=== PATIENT | male | born 1985 | race Two or more races ===

== ENCOUNTER 2019-10-03 07:52 | Emergency (ER) | payer MEDICAID, SELFPAY ==
[2019-10-03 07:56] VITALS: BP 179/104; PULSE 69; RESP 13; TEMP 36.8; O2SAT 99; BMI 30.7
--- NOTE | 2019-10-03 08:00 | ECG_ITS ---
APPROVED REPORT Exam: Resting ECG HR:57 bpm ECG Measurements Heart Rate 57 AXES AL 176 P 19 QRSd 94 QRS 35 QT 396 T 41 QTc 385 <Conclusion> Sinus bradycardia with sinus arrhythmia Incomplete RBBB Otherwise normal ECG Electronically signed by : William Molina, 10/03/2019 14:58:38
--- NOTE | 2019-10-03 08:09 | XR_ITS ---
PROCEDURE: XR CHEST 2V CLINICAL HISTORY: CP COMPARISON: No exams were available for comparison FINDINGS: Mild emphysematous changes are seen with hyperexpansion of the lung crow and flattening of the hemidiaphragms. There is no pneumonic infiltrate seen is no pleural fluid. Cardiac size is normal and the pulmonary vascularity appears normal. There is minor wedging of T7, T8 and T9, likely old. IMPRESSION: Mild to moderate COPD, no acute chest pathology noted Dictated Dr. Arnav Arrieta MD 10/03/2019 09:33 Dr. Arnav Hill MD in [place] 10/03/2019 09:33
[2019-10-03 08:24] LABS: Chloride 108 mmol/L (98-107); Sodium 140 mmol/L (136-145)
[2019-10-03 08:25] LABS: Basophils # 0.1 K/mm3 (0-0.2); Basophils % 0.8 % (0.1-2.0); Eosinophils # 0.2 K/mm3 (0.0-0.4); Eosinophils % 3.3 % (0.1-12.0); Hematocrit 47.1 % (42.0-52.0); Hemoglobin 16.4 g/dL (14.1-18.0); Lymphocytes # 1.8 K/mm3 (0.7-4.5); Lymphocytes % 26.1 % (10-50); Mean Corpuscular HGB Conc 34.9 g/dL (31.8-35.4); Mean Corpuscular Hemoglobin 29.3 pg (27.0-31.2); Mean Corpuscular Volume 83.9 fl (80-94); Mean Platelet Volume 8.5 fl (7.4-10.4); Monocytes # 0.4 K/mm3 (0.1-1.0); Monocytes % 5.2 % (1.7-9.3); Neutrophils # 4.4 K/mm3 (1.8-7.8); Neutrophils % 64.7 % (37.0-80.0); Platelet Count 232 K/mm3 (142-424); Potassium 4.3 mmoL/L (3.5-5.1); Red Blood Count 5.61 M/mm3 (4.60-6.20); Red Cell Distribution Width 12.7 % (11.5-17.5); White Blood Count 6.8 K/mm3 (4.8-10.8)
[2019-10-03 08:26] VITALS: BP 136/85; PULSE 59; RESP 17; O2SAT 98
[2019-10-03 08:27] LABS: Alanine Aminotransferase 41 U/L (12-78); Alkaline Phosphatase 125 U/L (38-126); Anion Gap 14.3 mEq/L (5-15); Aspartate Amino Transferase 38 U/L (17-59); Blood Urea Nitrogen 11 mg/dl (9-20); Carbon Dioxide 22 mmol/L (22.0-30.0); Creatinine Clearance Estimated 180 mL/min (50-200); Estimated Glomerular Filt Rate 128 ml/min (>60); GFR (African American) 155 ML/MIN (>60)
[2019-10-03 08:28] LABS: Albumin Level 4.6 g/dl (3.5-5.0); Calcium 9.5 mg/dl (8.4-10.2); Glucose 128 mg/dl (74-100); Total Protein,Serum 7.6 g/dl (6.3-8.2)
--- NOTE | 2019-10-03 08:44 | PC.NURSE ---
Call lab for update on lab results
[2019-10-03 08:45] LABS: Troponin I < 0.01 ng/ml (0.00-0.034)
[2019-10-03 09:30] VITALS: BP 127/65; PULSE 50; RESP 17; O2SAT 98
[2019-10-03 09:58] VITALS: BP 130/83; PULSE 56; RESP 15; O2SAT 97
--- NOTE | 2019-10-03 10:24 | HMH.EDGENADL ---
ED Disposition Clinical Impression: Atypical chest pain Disposition: Home, Self-Care Condition on Discharge: Good Instructions: DI for Acute Pain -- Adult Additional Instructions: Please follow-up with cardiology to get a stress test. Referrals: Austin Lopez MD [Primary Care Provider] - Alfredo Bear PA [Physician Primary Clinician] - - Critical Care Critical Care Time: No Attestation: On 10/03/19, the high probability of a clinically significant, sudden or life threatening deterioration of the following system(s) required my full and direct attention, intervention and personal management. The time I documented below is in addition to time spent performing reported procedures but includes the following listed in this critical care notation. Medical Decision Making - Medical Records Medical records reviewed: Yes: I reviewed the patient's medical records. - [place] Inquiry Pt receiving controlled substance: No Vital Signs: 10/03/19 07:56 10/03/19 08:26 10/03/19 09:30 Temperature 98.3 F Temperature Source Oral Pulse Rate [Right] 69 59 L 50 L Respiratory Rate 13 17 17 Blood Pressure [Right Arm] 179/104 H 136/85 127/65 Blood Pressure Mean [Right Arm] 129 102 85 02 Sat by Pulse Oximetry 99 98 98 10/03/19 09:58 Temperature Temperature Source Pulse Rate [Right] 56 L Respiratory Rate 15 Blood Pressure [Right Arm] 130/83 Blood Pressure Mean [Right Arm] 98 02 Sat by Pulse Oximetry 97 - Lab Data Lab results reviewed: Yes: I reviewed the patient's lab results. Lab Results 10/03/19 08:15: WBC 6.8, RBC 5.61, Hgb 16.4, Hct 47.1, MCV 83.9, MCH 29.3, MCHC 34.9, RDW 12.7, Plt Count 232, MPV 8.5, Neut % (Auto) 64.7, Lymph % (Auto) 26.1, [place] % (Auto) 5.2, Eos % (Auto) 3.3, Baso % (Auto) 0.8, Neut # (Auto) 4.4, Lymph # (Auto) 1.8, [place] # (Auto) 0.4, Eos # (Auto) 0.2, Baso # (Auto) 0.1 10/03/19 08:15: Sodium 140, Potassium 4.3, Chloride 108 H, Carbon Dioxide 22, Anion Gap 14.3, BUN 11, Creatinine 0.70, Estimated Creat Clear 180, Estimated GFR 128, Est GFR ( Amer) 155, Glucose 128 H, Calcium 9.5, Total Bilirubin 1.0, Direct Bilirubin 0.0, Conjugated Bilirubin 0.0, Indirect Bilirubin 1.0 H, Unconjugated Bilirubin 1.0, AST 38, ALT 41, Alkaline Phosphatase 125, Troponin I < 0.01, Total Protein 7.6, Albumin 4.6 Result diagrams: 10/03/19 08:15 10/03/19 08:15 Orders (Tests/Meds): ED MEDICATIONS Discontinued Medications Generic Name Dose Route Start Last Admin Trade Name Freq PRN Reason Stop Dose Admin Aspirin 324 mg 10/03/19 08:10 10/03/19 08:11 Aspirin 81mg Chewable Tablet PO 10/03/19 08:11 324 mg ONCE ONE Administration ORDERS Category Date Time Status Troponin I Q3H Lab 10/03/19 09:56 Received Troponin I Q3H Lab 10/03/19 14:15 Ordered ECG Request by /Bell Stat Y 10/03/19 08:09 Ordered - Radiology Data #1 Image(s): Chest Preliminary Findings: Normal/NAD - ECG Data Tracing #1 I reviewed this ECG and interpreted as documented below: Normal Sinus Rhythm: Yes - PATRIA Score for Non-Stemi Age of Patient: 30-39 years old Heart Rate: 150-199 bpm Systolic Blood Pressure: <80 mmHg Serum Creatinine: 0.80-1.19 mg/dl CHF [place] Class: I-No CHF Other Risk Factors: None Non-Stemi Risk Score: 111 Risk Stratification: 1-108 = Low Risk Medical Decision Narrative: Patient had 2 troponins drawn here in the emergency department both are negative. We will have him follow-up with cardiology for an outpatient stress test. General Adult HPI - General Chief complaint: PAIN Stated complaint: possible heart attack last night Time Seen by Provider: 10/03/19 10:25 Mode of Arrival: Ambulatory Limitations: No Limitations Description of Symptoms (Recalled from ER Triage Doc. by RN): Pt states last night he developed a sharp CP that radiated down his left arm and woke him up. Pt states he also had severe pressure in his head. Denies soa, cough, fever, contact with any
[2019-10-03 10:46] LABS: Troponin I < 0.01 ng/ml (0.00-0.034)
[2019-10-03 11:20] VITALS: BP 132/70; PULSE 87; RESP 16; TEMP 36.7; O2SAT 98
== END 2019-10-03 11:21 | disposition home or self-care (01) ==
PROVIDERS: Emergency Provider Family Medicine; PCP Family Medicine
DX: R07.89 Other chest pain (principal)
CPT/HCPCS: 71046; 80048; 80076; 84484; 85025; 93005; 99284

== ENCOUNTER 2019-10-19 17:00 | Emergency (ER) | payer MEDICAID, SELFPAY ==
[2019-10-19] VITALS (8 sets, daily range): BP systolic 118–147; BP diastolic 66–90; PULSE 60–87; RESP 17–18; TEMP -17.7–0; O2SAT 96–99; BMI 25.8
--- NOTE | 2019-10-19 16:58 | ECG_ITS ---
APPROVED REPORT Exam: Resting ECG HR:76 bpm ECG Measurements Heart Rate 76 AXES NH 182 P 34 QRSd 88 QRS 31 QT 368 T 29 QTc 414 <Conclusion> Normal sinus rhythm Nonspecific T wave abnormality Abnormal ECG Electronically signed by : Jonny Awad, 10/21/2019 07:01:19
--- NOTE | 2019-10-19 17:05 | XR_ITS ---
PROCEDURE: XR CHEST 2V CLINICAL HISTORY: chest pain COMPARISON: CR XR CHEST 2V from 10/03/2019 FINDINGS: The cardiomediastinal silhouette and pulmonary vascularity are within normal limits. Nodular density noted over the left heart in the retrocardiac region. This may only be related to a summation artifact. Cannot exclude developing nodule. Follow-up is suggested. The remaining lungs are clear. Degenerative changes are present in the thoracic spine with wedge contour of midthoracic vertebral bodies unchanged. IMPRESSION: No acute finding. Nonspecific nodularity left lower lobe possibly due to summation artifact versus developing nodule. Consider follow-up chest x-ray to confirm stability. Dictated by: Ant Neville MD 10/20/2019 06:44 Ant Neville MD in [place] 10/20/2019 06:44
--- NOTE | 2019-10-19 17:12 | PC.NURSE ---
at bedside using diplomatic interpreter/translator services at this time.
--- NOTE | 2019-10-19 17:22 | CT_ITS ---
PROCEDURE: CT HEAD/BRAIN WO CON CLINICAL INDICATION: weakness Left arm and left leg numbness COMPARISON: No exams were available for comparison TECHNIQUE: Axial images obtained. All CT scans at the facility use one or more dose reduction, viz: automated exposure control, ma/kV adjustment per patient size (including targeted exams where dose is matched to indication, i.e. head), or iterative reconstruction technique. FINDINGS: No midline shift, mass effect, intracranial hemorrhage, hydrocephalus, or extra-axial fluid collection is evident. The calvarium has an unremarkable appearance. No mastoid effusion. No sinus air-fluid level. IMPRESSION: No acute intracranial finding Dictated by: Ant eNville MD 10/19/2019 17:44 Ant Neville MD in [place] 10/19/2019 17:44
--- NOTE | 2019-10-19 17:22 | PC.NURSE ---
Pt to rad
--- NOTE | 2019-10-19 17:22 | HMH.EDCP ---
ED Disposition Clinical Impression: Chest pain Qualifiers: Chest pain type: other chest pain Qualified Code(s): R07.89 - Other chest pain Disposition: Home, Self-Care Condition on Discharge: Good Instructions: DI for Atypical Chest Pain Referrals: Austin Lopez MD [Primary Care Provider] - - Critical Care Critical Care Time: No Attestation: On 10/19/19, the high probability of a clinically significant, sudden or life threatening deterioration of the following system(s) required my full and direct attention, intervention and personal management. The time I documented below is in addition to time spent performing reported procedures but includes the following listed in this critical care notation. Medical Decision Making - Medical Records Medical records reviewed: Yes: I reviewed the patient's medical records. - [place] Inquiry Pt receiving controlled substance: No Vital Signs: 10/19/19 17:00 Pulse Rate [Radial] 87 Respiratory Rate 18 Blood Pressure [Right Arm] 147/90 H Blood Pressure Mean [Right Arm] 109 Blood Pressure Source [Right Arm] Automatic Cuff Blood Pressure Position [Right Arm] Sitting 02 Sat by Pulse Oximetry 96 Oxygen Delivery Method Room Air - Lab Data Lab results reviewed: Yes: I reviewed the patient's lab results. Lab Results 10/19/19 17:09: WBC 7.8, RBC 5.19, Hgb 15.0, Hct 43.3, MCV 83.5, MCH 28.9, MCHC 34.7, RDW 12.9, Plt Count 249, MPV 8.8, Neut % (Auto) 67.9, Lymph % (Auto) 21.7, [place] % (Auto) 5.7, Eos % (Auto) 3.7, Baso % (Auto) 1.0, Neut # (Auto) 5.3, Lymph # (Auto) 1.7, [place] # (Auto) 0.4, Eos # (Auto) 0.3, Baso # (Auto) 0.1 10/19/19 17:09: Sodium 141, Potassium 3.7, Chloride 109 H, Carbon Dioxide 22, Anion Gap 13.7, BUN 16, Creatinine 0.80, Estimated Creat Clear 132, Estimated GFR 110, Est GFR ( Amer) 133, Glucose 106 H, Calcium 9.2, Troponin I < 0.01 10/19/19 18:04: POC Glucose 107 10/19/19 19:14: Troponin I < 0.01 Result diagrams: 10/19/19 17:09 10/19/19 17:09 Orders (Tests/Meds): ED MEDICATIONS Generic Name Dose Route Start Last Admin Trade Name Miranda PRN Reason Stop Dose Admin Sodium Chloride 1,000 mls @ 999 mls/hr 10/19/19 17:30 10/19/19 18:15 Sod Chlor 0.9% 1000ml Bag IV 10/19/19 18:30 999 mls/hr .Q1H1M ZHAO Administration ORDERS Category Date Time Status Chest XR 2 view (NOT portable) [XR chest 2V] Stat Exams 10/19/19 17:05 Taken Troponin I Q3H Lab 10/19/19 23:15 Ordered Medical Decision Narrative: 34-year-old male presenting with chest pain. Nontoxic, afebrile, hemodynamically stable, oxygenating well on room air. Chest x-ray is negative for acute disease. Initial and repeat troponin within normal limits. EKG is nonischemic without arrhythmia. CBC, CMP are nonactionable. Head CT is negative for acute disease. Patient is asymptomatic after 2 L of IV fluids. Clinically, this was likely heat exhaustion. He will follow-up with PCP. Chest Pain HPI - General Chief Complaint: Chest Pain Stated Complaint: chest pain Time Seen by Provider: 10/19/19 18:11 Mode of Arrival: Ambulatory Limitations: No Limitations Description of Symptoms (Recalled from ER Triage Doc. by RN): Complaint of left sided chest pain and left arm and leg numbness. Has a history of htn. 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 - History of Present Illness HPI narrative: History and physical provided with help from manager of sustainability This is a 34-year-old male who presents 20 minutes after sustaining acute onset vague left chest pain radiating to his left upper extremity with associated palpitations and numbness and tingling in the left upper and lower extremities. This was with increased thirst and nonvertiginous dizziness. This happened to him 3 weeks ago as well. He attributed it to high blood pressure at this time although there is no documentation that he has had malignant/urgent hypertension. He was taking an un
[2019-10-19 17:26] LABS: Basophils # 0.1 K/mm3 (0-0.2); Chloride 109 mmol/L (98-107); Eosinophils # 0.3 K/mm3 (0.0-0.4); Eosinophils % 3.7 % (0.1-12.0); Hematocrit 43.3 % (42.0-52.0); Lymphocytes # 1.7 K/mm3 (0.7-4.5); Lymphocytes % 21.7 % (10-50); Mean Corpuscular HGB Conc 34.7 g/dL (31.8-35.4); Mean Corpuscular Hemoglobin 28.9 pg (27.0-31.2); Mean Corpuscular Volume 83.5 fl (80-94); Mean Platelet Volume 8.8 fl (7.4-10.4); Monocytes # 0.4 K/mm3 (0.1-1.0); Monocytes % 5.7 % (1.7-9.3); Neutrophils # 5.3 K/mm3 (1.8-7.8); Neutrophils % 67.9 % (37.0-80.0); Platelet Count 249 K/mm3 (142-424); Potassium 3.7 mmoL/L (3.5-5.1); Red Blood Count 5.19 M/mm3 (4.60-6.20); Red Cell Distribution Width 12.9 % (11.5-17.5); Sodium 141 mmol/L (136-145); White Blood Count 7.8 K/mm3 (4.8-10.8)
[2019-10-19 17:29] LABS: Anion Gap 13.7 mEq/L (5-15); Blood Urea Nitrogen 16 mg/dl (9-20); Calcium 9.2 mg/dl (8.4-10.2); Carbon Dioxide 22 mmol/L (22.0-30.0); Creatinine Clearance Estimated 132 mL/min (50-200); Estimated Glomerular Filt Rate 110 ml/min (>60); GFR (African American) 133 ML/MIN (>60); Glucose 106 mg/dl (74-100)
--- NOTE | 2019-10-19 17:42 | PC.NURSE ---
Pt returned from rad
[2019-10-19 18:10] LABS: Troponin I < 0.01 ng/ml (0.00-0.034)
[2019-10-19 18:11] LABS: POC Glucose,Bedside 107 (70-110)
[2019-10-19 19:46] LABS: Troponin I < 0.01 ng/ml (0.00-0.034)
== END 2019-10-19 20:23 | disposition home or self-care (01) ==
PROVIDERS: Emergency Provider Physician Assistant; PCP Family Medicine
DX: R07.89 Other chest pain (principal); R20.2 Paresthesia of skin; I10 Essential (primary) hypertension
CPT/HCPCS: 70450; 71046; 80048; 82962; 84484; 85025; 93005; 96365; 99284

== ENCOUNTER 2020-10-24 12:10 | Observation (INO) | payer SELFPAY ==
[2020-10-24] VITALS (16 sets, daily range): BP systolic 113–150; BP diastolic 70–91; PULSE 54–70; RESP 16–20; TEMP 36.7–37.2; O2SAT 97–100; BMI 14.7; BMI 147420.8; BMI 29.6
--- NOTE | 2020-10-24 14:04 | HMH.EDUTC ---
[facility] [place] Impression: Chest pain Qualifiers: Chest pain type: unspecified Qualified Code(s): R07.9 - Chest pain, unspecified Disposition: Admitted as Observation Condition on Discharge: Fair Medical Decision Making - Medical Records Medical records reviewed: No: I reviewed the patient's medical records. - [place] Inquiry Pt receiving controlled substance: No Vital Signs: 10/24/20 13:40 10/24/20 14:28 10/24/20 14:30 Temperature 98.0 F Temperature Source Oral Pulse Rate 63 70 Pulse Rate [Right Brachial] 60 Respiratory Rate 18 18 18 Blood Pressure 131/85 136/91 H Blood Pressure [Right Arm] 141/90 H Blood Pressure Mean 96 98 Blood Pressure Mean [Right Arm] 107 Blood Pressure Source [Right Arm] Automatic Cuff Blood Pressure Position [Right Arm] Sitting 02 Sat by Pulse Oximetry 99 99 98 Oxygen Delivery Method Room Air Room Air Room Air 10/24/20 14:41 10/24/20 15:00 10/24/20 15:30 Temperature 99 F Temperature Source Oral Pulse Rate 54 L 56 L Pulse Rate [Right Brachial] 59 L Respiratory Rate 16 18 18 Blood Pressure 124/70 120/75 Blood Pressure [Right Arm] 131/91 H Blood Pressure Mean 88 87 Blood Pressure Mean [Right Arm] 104 Blood Pressure Source [Right Arm] Blood Pressure Position [Right Arm] Sitting 02 Sat by Pulse Oximetry 98 97 98 Oxygen Delivery Method Room Air Room Air Room Air 10/24/20 16:30 10/24/20 17:00 10/24/20 17:30 Temperature Temperature Source Pulse Rate 59 L 69 55 L Pulse Rate [Right Brachial] Respiratory Rate 18 18 20 Blood Pressure 120/75 116/74 113/73 Blood Pressure [Right Arm] Blood Pressure Mean 90 88 81 Blood Pressure Mean [Right Arm] Blood Pressure Source [Right Arm] Blood Pressure Position [Right Arm] 02 Sat by Pulse Oximetry 99 99 98 Oxygen Delivery Method Room Air Room Air Room Air 10/24/20 17:45 10/24/20 17:48 Temperature 98.3 F Temperature Source Oral Pulse Rate 65 57 L Pulse Rate [Right Brachial] Respiratory Rate 18 17 Blood Pressure 122/77 122/77 Blood Pressure [Right Arm] Blood Pressure Mean 84 Blood Pressure Mean [Right Arm] Blood Pressure Source [Right Arm] Blood Pressure Position [Right Arm] 02 Sat by Pulse Oximetry 99 Oxygen Delivery Method Room Air - Lab Data Lab Results 10/24/20 14:15: WBC 8.3, RBC 5.74, Hgb 16.3, Hct 49.0, MCV 85.4, MCH 28.5, MCHC 33.4, RDW 12.7, Plt Count 344, MPV 8.6, Neut % (Auto) 73.9, Lymph % (Auto) 19.1, [place] % (Auto) 4.9, Eos % (Auto) 1.4, Baso % (Auto) 0.8, Neut # (Auto) 6.1, Lymph # (Auto) 1.6, [place] # (Auto) 0.4, Eos # (Auto) 0.1, Baso # (Auto) 0.1 10/24/20 14:15: Sodium 141, Potassium 4.2, Chloride 104, Carbon Dioxide 26, Anion Gap 15.2 H, BUN 9, Creatinine 0.80, Estimated Creat Clear 73, Estimated GFR 109, Est GFR ( Amer) 132, Glucose 94, Calcium 9.6, Troponin I < 0.01 10/24/20 16:42: SARS-CoV-2 (PCR) Not detected, Influenza A Untype (PCR) Not detected, Influenza Type B (PCR) Not detected 10/24/20 17:45: Troponin I < 0.01 Result diagrams: 10/24/20 14:15 10/24/20 14:15 Orders (Tests/Meds): ED MEDICATIONS Generic Name Dose Route Start Last Admin Trade Name Freq PRN Reason Stop Dose Admin Acetaminophen 650 mg 10/24/20 17:06 Acetaminophen 325mg Tab PO 11/23/20 17:05 Q4HP PRN Fever or Mild Pain Atorvastatin Calcium 20 mg 10/25/20 21:00 Atorvastatin 20mg Tablet PO 11/24/20 20:59 HS ZHAO Irbesartan 75 mg 10/25/20 09:00 10/25/20 08:44 Irbesartan 75mg Tablet PO 11/24/20 08:59 75 mg DAILY ZHAO Administration Ondansetron HCl 4 mg 10/24/20 17:06 Ondansetron 4mg/2ml Vial IV 11/23/20 17:05 Q8HP PRN Nausea Discontinued Medications Generic Name Dose Route Start Last Admin Trade Name Freq PRN Reason Stop Dose Admin Aspirin 324 mg 10/24/20 15:50 10/24/20 15:57 Aspirin 81mg Chewable Tablet PO 10/24/20 15:51 324 mg ONCE ONE Administration ORDERS Category
--- NOTE | 2020-10-24 14:25 | PC.NURSE ---
PATIENT SENT TO ER PER Nieves BOO APRN FOR FURTHER EVALUATION. REPORT GIVEN TO Iwona CRONIN RN
--- NOTE | 2020-10-24 14:37 | ECG_ITS ---
APPROVED REPORT Exam: Resting ECG HR:54 bpm ECG Measurements Heart Rate 54 AXES AL 188 P 19 QRSd 86 QRS 41 QT 400 T 38 QTc 379 Conclusion Sinus bradycardia Otherwise normal ECG Electronically signed by : Jonny Awad MD 10/28/2020 21:04:37
--- NOTE | 2020-10-24 14:39 | ED_ITS ---
ED Disposition Clinical Impression: Tachycardia, Dyspnea on effort Hypertension Qualifiers: Hypertension type: unspecified Qualified Code(s): I10 - Essential (primary) hypertension Disposition: Still a Patient Referrals: Provider,MD Tammy [Primary Care Provider] - Attestation: On 10/24/20, the high probability of a clinically significant, sudden or life threatening deterioration of the following system(s) required my full and direct attention, intervention and personal management. The time I documented below is in addition to time spent performing reported procedures but includes the following listed in this critical care notation. Medical Decision Making Vital Signs: 10/24/20 13:40 Temperature 98.0 F Temperature Source Oral Pulse Rate [Right Brachial] 60 Respiratory Rate 18 Blood Pressure [Right Arm] 141/90 H Blood Pressure Mean [Right Arm] 107 Blood Pressure Source [Right Arm] Automatic Cuff Blood Pressure Position [Right Arm] Sitting 02 Sat by Pulse Oximetry 99 Oxygen Delivery Method Room Air - ECG Data Tracing #1 EKG interpreted by Donald Gaitan MD: Rhythm: sinus Rate: 54 [place]: normal Ectopy: none Conduction: normal ST Segment Changes: none T Wave Changes: none Q Waves: none No evidence of acute ischemia or injury No prior EKGs available for comparison. General Adult HPI - General Stated complaint: elevated BP Time Seen by Provider: 10/24/20 14:39 Mode of Arrival: Ambulatory Source of Information: Patient, Significant Other Limitations: No Limitations Description of Symptoms (Recalled from ER Triage Doc. by RN): PATIENT STATES THAT ON EXERTION HE HAS ELEAVTED BLOOD PRESSURE, WEAKNESS, CHEST TIGHTNESS, ELEVATED HEART RATE, HEADACHE, AND BODY SHAKES FOR THE PAST FEW WEEKS - Related Data Allergies Allergy/AdvReac Type Severity Reaction Status Date / Time No Known Allergies Allergy Verified 10/24/20 13:55 [facility] History - Hepatitis A Screen Drug use history?: No High risk sexual behaviors?: No History of sexually transmitted infection?: No Currently employed?: No Childcare worker?: No Do you have indoor plumbing?: Yes Do you have electricity?: Yes Attestation statement:: This patient has been screened for Hepatitis A risk factors. Physical Exam - General General appearance: alert, in no apparent distress
--- NOTE | 2020-10-24 14:53 | HMH.EDGENADL ---
ED Disposition Clinical Impression: Chest pain Qualifiers: Chest pain type: unspecified Qualified Code(s): R07.9 - Chest pain, unspecified Disposition: Admitted as Observation Condition on Discharge: Good Referrals: Provider,Referral, [Primary Care Provider] - - Critical Care Critical Care Time: No Attestation: On 10/24/20, the high probability of a clinically significant, sudden or life threatening deterioration of the following system(s) required my full and direct attention, intervention and personal management. The time I documented below is in addition to time spent performing reported procedures but includes the following listed in this critical care notation. Medical Decision Making - [place] Inquiry Pt receiving controlled substance: No Vital Signs: 10/24/20 13:40 10/24/20 14:41 Temperature 98.0 F 99 F Temperature Source Oral Oral Pulse Rate [Right Brachial] 60 59 L Respiratory Rate 18 16 Blood Pressure [Right Arm] 141/90 H 131/91 H Blood Pressure Mean [Right Arm] 107 104 Blood Pressure Source [Right Arm] Automatic Cuff Blood Pressure Position [Right Arm] Sitting Sitting 02 Sat by Pulse Oximetry 99 98 Oxygen Delivery Method Room Air Room Air - Lab Data Lab Results 10/24/20 14:15: WBC 8.3, RBC 5.74, Hgb 16.3, Hct 49.0, MCV 85.4, MCH 28.5, MCHC 33.4, RDW 12.7, Plt Count 344, MPV 8.6, Neut % (Auto) 73.9, Lymph % (Auto) 19.1, [place] % (Auto) 4.9, Eos % (Auto) 1.4, Baso % (Auto) 0.8, Neut # (Auto) 6.1, Lymph # (Auto) 1.6, [place] # (Auto) 0.4, Eos # (Auto) 0.1, Baso # (Auto) 0.1 10/24/20 14:15: Sodium 141, Potassium 4.2, Chloride 104, Carbon Dioxide 26, Anion Gap 15.2 H, BUN 9, Creatinine 0.80, Estimated Creat Clear 73, Estimated GFR 109, Est GFR ( Amer) 132, Glucose 94, Calcium 9.6, Troponin I < 0.01 Result diagrams: 10/24/20 14:15 10/24/20 14:15 Orders (Tests/Meds): ED MEDICATIONS Discontinued Medications Generic Name Dose Route Start Last Admin Trade Name Miranda PRN Reason Stop Dose Admin Aspirin 324 mg 10/24/20 15:50 10/24/20 15:57 Aspirin 81mg Chewable Tablet PO 10/24/20 15:51 324 mg ONCE ONE Administration ORDERS Category Date Time Status Troponin I Q3H Lab 10/24/20 18:00 Ordered Troponin I Q3H Lab 10/24/20 21:00 Ordered - ECG Data Tracing #1 EKG interpreted by Donald Gaitan MD: Rhythm: sinus bradycardia Rate: 54 [place]: normal Ectopy: none Conduction: normal ST Segment Changes: none T Wave Changes: none Q Waves: none No evidence of acute ischemia or injury - Physician Consults Physician Consulted: Manju Time: 16:02 Reason -: Cardiology Eval/Care Comment/Response: Recommends admission, plans stress test in the morning, requests lipid profile for the morning Additional Consult: Neuomari Time: 16:30 Reason -: Admission Comment/Response: Agrees to admit the patient to the hospital. We discussed the patient's clinical information, including history, exam, laboratory and radiology results and ED course. Per hospital procedure, I will write temporary bridge inpatient orders on the patient. Specific orders requested by the admitting physician: N.p.o. after midnight - PATRIA Score for Non-Stemi Age of Patient: 30-39 years old Heart Rate: 50-69 bpm Systolic Blood Pressure: 140-159 mmHg Serum Creatinine: 0.80-1.19 mg/dl CHF [place] Class: I-No CHF Other Risk Factors: None Non-Stemi Risk Score: 42 General Adult HPI - General Stated complaint: elevated BP Time Seen by Provider: 10/24/20 14:39 Mode of Arrival: Ambulatory Source of Information: Patient, Significant Other Limitations: No Limitations Description of Symptoms (Recalled from ER Triage Doc. by RN): PATIENT STATES THAT ON EXERTION HE HAS ELEAVTED BLOOD PRESSURE, WEAKNESS, CHEST TIGHTNESS, ELEVATED HEART RATE, HEADACHE, AND BODY SHAKES FOR THE PAST FEW WEEKS - History of Present Illness HPI narrative: The patient was seen at the urgent treatment center and sent to the emerg
--- NOTE | 2020-10-24 15:00 | XR_ITS ---
PROCEDURE: XR CHEST PORTABLE CLINICAL HISTORY: CHEST PAIN COMPARISON: No exams were available for comparison FINDINGS: The cardiomediastinal silhouette and pulmonary vascularity are within normal limits. The lungs are clear without infiltrates, suspicious nodules, or pleural effusions. Overlying artifact IMPRESSION: No acute findings. Dictated by: Ant Neville MD 10/24/2020 15:27 Ant Neville MD in [place] 10/24/2020 15:27
[2020-10-24 15:11] LABS: Chloride 104 mmol/L (98-107); Potassium 4.2 mmoL/L (3.5-5.1); Sodium 141 mmol/L (136-145)
[2020-10-24 15:14] LABS: Anion Gap 15.2 mEq/L (5-15); Basophils # 0.1 K/mm3 (0-0.2); Basophils % 0.8 % (0.1-2.0); Blood Urea Nitrogen 9 mg/dl (9-20); Carbon Dioxide 26 mmol/L (22.0-30.0); Creatinine Clearance Estimated 73 mL/min (50-200); Eosinophils # 0.1 K/mm3 (0.0-0.4); Eosinophils % 1.4 % (0.1-12.0); Estimated Glomerular Filt Rate 109 ml/min (>60); GFR (African American) 132 ML/MIN (>60); Hemoglobin 16.3 g/dL (14.1-18.0); Lymphocytes # 1.6 K/mm3 (0.7-4.5); Lymphocytes % 19.1 % (10-50); Mean Corpuscular HGB Conc 33.4 g/dL (31.8-35.4); Mean Corpuscular Hemoglobin 28.5 pg (27.0-31.2); Mean Corpuscular Volume 85.4 fl (80-94); Mean Platelet Volume 8.6 fl (7.4-10.4); Monocytes # 0.4 K/mm3 (0.1-1.0); Monocytes % 4.9 % (1.7-9.3); Neutrophils # 6.1 K/mm3 (1.8-7.8); Neutrophils % 73.9 % (37.0-80.0); Platelet Count 344 K/mm3 (142-424); Red Blood Count 5.74 M/mm3 (4.60-6.20); Red Cell Distribution Width 12.7 % (11.5-17.5); White Blood Count 8.3 K/mm3 (4.8-10.8)
[2020-10-24 15:15] LABS: Calcium 9.6 mg/dl (8.4-10.2); Glucose 94 mg/dl (74-100)
[2020-10-24 15:30] LABS: Troponin I < 0.01 ng/ml (0.00-0.034)
--- NOTE | 2020-10-24 15:50 | PC.NURSE ---
DANK HEATH SPEAKING WITH DR. MANRIQUEZ
--- NOTE | 2020-10-24 15:53 | PC.NURSE ---
waiting program production specialist back from Dr. Fortune
--- NOTE | 2020-10-24 16:38 | PC.NURSE ---
BED ASSIGNMENT REQUESTED, ROOM 214. ALL STAFF NOTIFIED
--- NOTE | 2020-10-24 16:39 | PC.NURSE ---
Manager Operations called for a room.
[2020-10-24 16:50] LABS: Coronavirus 19, PCR Not Detected (NotDetected); Influenza A, PCR Not Detected (NotDetected); Influenza B, PCR Not Detected (NotDetected)
[2020-10-24 18:29] LABS: Troponin I < 0.01 ng/ml (0.00-0.034)
--- NOTE | 2020-10-24 19:11 | HMH.HP ---
*Admission Date: 10/24/20 *Chief complaint: chest pain *History of present illness: For about 1 month he has been having exertional episodes of chest pressure, shakiness, spinning, decreased hearing in his left ear, shortness of breath, nausea, diaphoresis, headache, and elevated blood pressure. He had similar symptoms a year ago and was seen at the urgent treatment center here. States that yesterday and last night he had a bad day and a bad night. He is a non-smoker. He has hypertension. He has been taking extra losartan. He is supposed to take 1 a day, yesterday he took 4. He has no family history of heart disease. He has never had a cardiac work-up such as a stress test or heart cath. He does not have diabetes. He says he has hyperlipidemia but is not on medication for that. He currently is asymptomatic, no chest discomfort. He only gets symptoms with exertion. The patient is currently pain-free. His troponins have been negative. After Manju was consulted from the emergency room, he plans a GXT tomorrow. [facility] History Medical History: Reports:: Hypertension Denies:: Diabetes Mellitus Type 1, Diabetes Mellitus Type 2 *Have you ever received a pneumonia vaccine?: No *Have you received a flu vaccine this season?: No Other Surgeries: No: CABG - *Social History Last grade of school completed: None Smoking Status: Unknown if ever smoked Alcohol Intake: never Alcohol Intake Frequency:: 0-2 drinks per day Substance Use Type: denies use *Occupational Status:: employed *Travel in the last 8 weeks: None Family Hx:: Unable to obtain Review of Systems - *Cardiovascular Reports chest pain with activity - *Neurologic Reports dizziness, Reports headache(s), Reports dizziness Meds Home Medications Medication Instructions Recorded Confirmed Type Losartan Potassium 50 mg PO DAILY 10/24/20 10/24/20 History Allergies Allergy/AdvReac Type Severity Reaction Status Date / Time No Known Allergies Allergy Verified 10/24/20 13:55 Exam Vital signs and Labs for Last 24 Hours: Temp Pulse Resp BP Pulse Ox 98.7 F 60 16 122/77 99 10/24/20 17:55 10/24/20 18:12 10/24/20 17:55 10/24/20 17:55 10/24/20 18:23 Laboratory Results - last 24 hr 10/24/20 14:15: WBC 8.3, RBC 5.74, Hgb 16.3, Hct 49.0, MCV 85.4, MCH 28.5, MCHC 33.4, RDW 12.7, Plt Count 344, MPV 8.6, Neut % (Auto) 73.9, Lymph % (Auto) 19.1, [place] % (Auto) 4.9, Eos % (Auto) 1.4, Baso % (Auto) 0.8, Neut # (Auto) 6.1, Lymph # (Auto) 1.6, [place] # (Auto) 0.4, Eos # (Auto) 0.1, Baso # (Auto) 0.1 10/24/20 14:15: Sodium 141, Potassium 4.2, Chloride 104, Carbon Dioxide 26, Anion Gap 15.2 H, BUN 9, Creatinine 0.80, Estimated Creat Clear 73, Estimated GFR 109, Est GFR ( Amer) 132, Glucose 94, Calcium 9.6, Troponin I < 0.01 10/24/20 16:42: SARS-CoV-2 (PCR) Not detected, Influenza A Untype (PCR) Not detected, Influenza Type B (PCR) Not detected 10/24/20 17:45: Troponin I < 0.01 I & O for Last 24 hours: Intake & Output 10/21/20 10/22/20 10/23/20 10/24/20 23:59 23:59 23:59 23:59 Weight 178 lb - Constitutional no acute distress - *Routine HEENT Exam Head: Present: normocephalic Eye: Present: EOMI, PERRL ENT: Present: mucous membranes moist - *Routine Neck Exam Present: supple. Absent: lymphadenopathy - *Routine Respiratory Exam Present: CTA bilaterally - *Routine Cardiovascular Exam Present: RRR - *Routine Abdominal Exam Present: soft, normoactive bowel sounds. Absent: tenderness - *Routine Rectal Exam Rectal:: deferred - *Routine Genitalia Exam Genitalia:: deferred - *Routine Extremities Exam Absent: cyanosis, clubbing, edema - *Routine Skin Exam Present: warm. Absent: rash - *Routine Neurological Exam Present: alert, oriented X3 Assessment and Plan (1) Chest pain Status: Acute Qualifiers: Chest pain type: unspecified Qualified Code(s): R07.9 - Chest pain, unspecified Category: Medical Code
--- NOTE | 2020-10-24 19:17 | CA_ITS ---
APPROVED REPORT Exam: Exercise Treadmill Technologist: Nubia Martinez, Ht: 5 ft 4 in Wt: 180 lbs BSA: 1.87 m2 HR: 66 bpm BP: 145/74 mmHg Indications: CP Medical History Medications: Losartan,,,,, Allergies: NKA Cardiac Risk Factors: HTN Stress Test Details Test: Edgar HR Resting HR: 70 bpm Max Heart Rate (APMHR): 184.492681 bpm Max HR Achieved: 182 bpm Target HR (85% APMHR): 156.107186 bpm % of APMHR: 98.91 Recovery HR: 82 bpm BP Resting BP: 127/87 mmHg Max BP: 145/74 mmHg Recovery BP: 126.0/60.0 mmHg ECG Clinical Exercise duration: 10:20 min Highest Stage Achieved: Stage 4: 4.2 mph at 16% grade. Exercise capacity: 12.8 METs Stress ECG Conclusion Patient c/o SOB at peak exercise that resolved during recovery. No chest pain.Occ PVC but no ectopy. Less than 1.5mm ST depression. Good exercise tolerance. Appropriate BP response. Normal GXT. Test Summary REST . . . . . . . Sitting REST 06:12 0.0 0.0 70 . 127/ 87 . . Stage 1 01:00 10.0 1.7 95 . . . . Stage 1 02:00 10.0 1.7 95 . . . . Stage 1 03:00 10.0 1.7 98 . 130/ 90 . . Stage 2 01:00 12.0 2.5 109 . . . . Stage 2 02:00 12.0 2.5 118 . 134/ 92 . . Stage 2 03:00 12.0 2.5 125 . 134/ 92 . . Stage 3 01:00 14.0 3.4 138 . . . . Stage 3 02:00 14.0 3.4 155 . . . . Stage 3 03:00 14.0 3.4 158 . 141/ 95 . . Stage 4 01:00 16.0 4.2 179 . . . . Stage 4 01:20 16.0 4.2 181 . . . Stop exercise at 10:20 RECOVERY 01:00 0.0 0.0 137 . . . . RECOVERY 02:00 0.0 0.0 71 . . . . RECOVERY 03:00 0.0 0.0 95 . 126/ 60 . . RECOVERY 03:38 0.0 0.0 95 . 117/ 72 . . Electronically signed by : Ezequiel Shah MD 10/25/2020 19:38:17
--- NOTE | 2020-10-24 21:38 | P.CONPHA_ITS ---
[facility] Pharmacy VTE Monitoring - Patient Demographics Admission date: 10/24/20 Report Date: 10/24/20 Time: 21:38 Allergies/Adverse Reactions: Patient Allergies No Known Allergies Allergy (Verified 10/24/20 13:55) Height: 1.65 m Weight: 80.739 kg Patient Problems: Current Active Problems Chest pain (Acute) Essential hypertension (Chronic) - VTE Risk Labs: VTE Related Lab Results Hgb 16.3 g/dL (14.1-18.0) 10/24/20 14:15 Hct 49.0 % (42.0-52.0) 10/24/20 14:15 Plt Count 344 K/mm3 (142-424) 10/24/20 14:15 BUN 9 mg/dl (9-20) 10/24/20 14:15 Creatinine 0.80 mg/dl (0.66-1.25) 10/24/20 14:15 Estimated Creat Clear 73 mL/min (50-200) 10/24/20 14:15 Was VTE Risk Assessment Performed: Yes VTE Score: 0 Clinical Trial Participant: No - Prophylaxis VTE Prophylaxis Ordered?: Yes Types of VTE Prophylaxis: TEDS Knee High Location of Applied Device: Refused
[2020-10-24 21:48] LABS: Troponin I < 0.01 ng/ml (0.00-0.034)
[2020-10-25] VITALS (7 sets, daily range): BP systolic 121–136; BP diastolic 66–87; PULSE 50–76; RESP 18; TEMP 36.4–36.8; O2SAT 99; BMI 30.9
--- NOTE | 2020-10-25 03:17 | PC.NURSE ---
Patient had an uneventful night with no complaints of chest pain. No apparent distress noted at this time.
[2020-10-25 07:06] LABS: Chol/HDL Ratio 6.9 (1-3.5); Cholesterol 214 mg/dl (140-200); HDL Cholesterol 31 mg/dl (40-60); Triglycerides 206 mg/dl (30-150); VLDL Cholesterol 41 mg/dL (0-40)
[2020-10-25 07:17] LABS: Direct LDL Cholesterol 128.43 mg/dL (100-129)
--- NOTE | 2020-10-25 08:13 | CA_ITS ---
APPROVED REPORT EXAM: Comprehensive 2D, Doppler, and color-flow Echocardiogram Behavioral Technician: Melly Morrison RT(R) Ht: 5 ft 4 in Wt: 180lbs BSA: 1.87 BP: 122/77 mmHg Indications: CP, HTN, SOB 2D Dimensions LVOT 1.96 cm (M/F) 1.5-2.5 LVEF (Souza's) 63.30 % M: 52 - 72 LV Volume 110.50 mL M: 62 - 150 LV Volume Index 59.09 mL/m2 M: 34 - 74 LA Volume 38.60 mL LA Volume Index 20.64 mL/m2 (M/F) 16-34 M-Mode Dimensions RVDd 2.14 cm (0.9-2.6) LA Diam 3.95 cm (1.9-4.0) LVDd 4.39 cm (3.5-5.7) Ao Diam 2.80 cm (2.0-3.7) LVDs 3.29 cm (3.5-5.7) IVSd 0.54 cm (0.6-1.1) PWd 0.57 cm (0.6-1.1) EF (Teich) 49.80% FS 25.10% EDV (Teich) 87.20 mL ESV (Teich) 43.80 mL LV Diastology E Decel Time 193.00 (160-240 msec) E/A Ratio 0.7 MED E' 10.70 (< 7 cm/sec) E'/MED E' Ratio 6.25 (>14) LAT E' 17.70 (<10 cm/sec) E/LAT E' Ratio 3.78 (>14) Mitral Valve MV E Max Edgar. 67.00 (40-130 cm/s) MV A Velocity 91.00 (40-130 cm/s) E/A Ratio 0.74 MV Decel. Time 193.00 (160-240 ms) MV PHT 57.00 ms Left Ventricle Left atrium is normal size, left ventricle is normal size, there is no concentric left ventricle hypertrophy, visually estimated ejection fraction 55% with no regional wall motion abnormality, diastolic parameters are within normal range. Right Ventricle Right atrium and right ventricle are normal size and contractility. Aortic Valve Aortic valve is grossly normal, there is no aortic stenosis or aortic insufficiency. Mitral Valve Mitral valve is grossly normal, there is trace mitral regurgitation. Tricuspid Valve Tricuspid grossly normal, there is trace tricuspid regurgitation, tricuspid regurgitation jet velocity is inadequate for calculation of the right ventricular systolic pressure. Pulmonic Valve Pulmonic valve is poorly visualized. Great Vessels Aortic root is normal size. Pericardium No significant pericardial effusion noted. Conclusion 1. Normal left ventricular size, preserved left ventricular systolic function, visually estimated ejection fraction 55% with no regional wall motion abnormality, diastolic parameters are within normal range. 2. Trace mitral and tricuspid regurgitation. 3. No significant pericardial effusion noted. Electronically signed by : Ezequiel Shah MD 10/25/2020 12:31:28
--- NOTE | 2020-10-25 09:36 | HMH.CNCARD ---
History of Present Illness Consult date: 10/25/20 Requesting physician: Zane Fortune Consult reason: chest pain Chief complaint: chest pain and racing of the heart History of present illness: This is a 35-year-old gentleman who presented to the emergency department with complaints of chest pressure, shakiness and elevated heart rate. The patient states that for approximately a month he has been having episodes of chest pressure and his heart racing when he is exerting himself. He states that he will will get sudden onset of his heart racing then he will have a pressure in the substernal aspect of his chest and it does not radiate. The patient states it is associated with left arm shakiness, decreased hearing in his right ear, shortness of breath, nausea, diaphoresis, headache and an elevated blood pressure. He states that he has not been feeling well the last several days and it got really bad the night before his admission. The patient does have known hypertension and takes losartan. He states that he has known hyperlipidemia but is not on any medications for that. He denies a family history of heart disease or a personal history of heart disease. This morning he states that he currently has no symptoms. He denies any edema, fever, chills, diarrhea, PND or orthopnea. The patient has ruled out for an MS. [facility] History I have reviewed the patient's past medical history: Yes Medical History: Reports:: Hyperlipidemia, Hypertension Denies:: Diabetes Mellitus Type 1, Diabetes Mellitus Type 2 *Have you ever received a pneumonia vaccine?: No *Have you received a flu vaccine this season?: No Other Surgeries: No: CABG - *Social History Last grade of school completed: None Smoking Status: Unknown if ever smoked Alcohol Intake: never Alcohol Intake Frequency:: 0-2 drinks per day Substance Use Type: denies use *Occupational Status:: employed *Travel in the last 8 weeks: None Family Hx:: Unable to obtain Meds Home Medications Medication Instructions Recorded Confirmed Type No Known Home Medications 10/03/19 10/03/19 History Losartan Potassium 50 mg PO DAILY 10/24/20 10/24/20 History Allergies Allergy/AdvReac Type Severity Reaction Status Date / Time No Known Allergies Allergy Verified 10/25/20 09:02 Exam Vital signs and Labs for Last 24 Hours: Temp Pulse Resp BP Pulse Ox 98.1 F 64 18 131/87 99 10/25/20 07:32 10/25/20 07:32 10/25/20 07:32 10/25/20 07:32 10/25/20 07:32 Laboratory Results - last 24 hr 10/24/20 14:15: WBC 8.3, RBC 5.74, Hgb 16.3, Hct 49.0, MCV 85.4, MCH 28.5, MCHC 33.4, RDW 12.7, Plt Count 344, MPV 8.6, Neut % (Auto) 73.9, Lymph % (Auto) 19.1, [place] % (Auto) 4.9, Eos % (Auto) 1.4, Baso % (Auto) 0.8, Neut # (Auto) 6.1, Lymph # (Auto) 1.6, [place] # (Auto) 0.4, Eos # (Auto) 0.1, Baso # (Auto) 0.1 10/24/20 14:15: Sodium 141, Potassium 4.2, Chloride 104, Carbon Dioxide 26, Anion Gap 15.2 H, BUN 9, Creatinine 0.80, Estimated Creat Clear 73, Estimated GFR 109, Est GFR ( Amer) 132, Glucose 94, Calcium 9.6, Troponin I < 0.01 10/24/20 16:42: SARS-CoV-2 (PCR) Not detected, Influenza A Untype (PCR) Not detected, Influenza Type B (PCR) Not detected 10/24/20 17:45: Troponin I < 0.01 10/24/20 21:07: Troponin I < 0.01 10/25/20 06:11: Triglycerides 206 H, Cholesterol 214 H, LDL Cholesterol Direct 128.43, VLDL Cholesterol 41 H, HDL Cholesterol 31 L, Cholesterol/HDL Ratio 6.9 H I & O for Last 24 hours: Intake & Output 10/22/20 10/23/20 10/24/20 10/25/20 23:59 23:59 23:59 23:59 Intake Total 0 / 0 Balance 0 / 0 Weight 178 lb 186 lb Narrative: EKG is sinus bradycardia with a rate of 54. - Constitutional no acute distress, obese - *Routine HEENT Exam Head: Present: normocephalic, atraumatic Eye: Present: EOMI, PERRL ENT: Present: mucous membranes moist - *Routine Neck Exam Present: supple, full ROM, normal carotid upstroke. Absent: JVD, carotid bruit, lymphadenopathy - *Ro
--- NOTE | 2020-10-25 16:27 | HMH.DCSUM ---
General - General Admission date:: 10/24/20 Discharge date: 10/25/20 HPI HPI: For about 1 month he has been having exertional episodes of chest pressure, shakiness, spinning, decreased hearing in his left ear, shortness of breath, nausea, diaphoresis, headache, and elevated blood pressure. He had similar symptoms a year ago and was seen at the urgent treatment center here. States that yesterday and last night he had a bad day and a bad night. He is a non-smoker. He has hypertension. He has been taking extra losartan. He is supposed to take 1 a day, yesterday he took 4. He has no family history of heart disease. He has never had a cardiac work-up such as a stress test or heart cath. He does not have diabetes. He says he has hyperlipidemia but is not on medication for that. He currently is asymptomatic, no chest discomfort. He only gets symptoms with exertion. The patient is currently pain-free. His troponins have been negative. After Manju was consulted from the emergency room, he plans a GXT tomorrow. Hospital Course Hospital Course: Laboratory Tests 10/24/20 10/24/20 10/24/20 14:15 14:15 16:42 WBC 8.3 RBC 5.74 Hgb 16.3 Hct 49.0 MCV 85.4 MCH 28.5 MCHC 33.4 RDW 12.7 Plt Count 344 MPV 8.6 Neut % (Auto) 73.9 Lymph % (Auto) 19.1 [place] % (Auto) 4.9 Eos % (Auto) 1.4 Baso % (Auto) 0.8 Neut # (Auto) 6.1 Lymph # (Auto) 1.6 [place] # (Auto) 0.4 Eos # (Auto) 0.1 Baso # (Auto) 0.1 Sodium 141 Potassium 4.2 Chloride 104 Carbon Dioxide 26 Anion Gap 15.2 H BUN 9 Creatinine 0.80 Estimated Creat Clear 73 Estimated GFR 109 Est GFR ( Amer) 132 Glucose 94 Calcium 9.6 Troponin I < 0.01 Triglycerides Cholesterol LDL Cholesterol Direct VLDL Cholesterol HDL Cholesterol Cholesterol/HDL Ratio SARS-CoV-2 (PCR) Not detected Influenza A Untype (PCR) Not detected Influenza Type B (PCR) Not detected 10/24/20 10/24/20 10/25/20 17:45 21:07 06:11 WBC RBC Hgb Hct MCV MCH MCHC RDW Plt Count MPV Neut % (Auto) Lymph % (Auto) [place] % (Auto) Eos % (Auto) Baso % (Auto) Neut # (Auto) Lymph # (Auto) [place] # (Auto) Eos # (Auto) Baso # (Auto) Sodium Potassium Chloride Carbon Dioxide Anion Gap BUN Creatinine Estimated Creat Clear Estimated GFR Est GFR ( Amer) Glucose Calcium Troponin I < 0.01 < 0.01 Triglycerides 206 H Cholesterol 214 H LDL Cholesterol Direct 128.43 VLDL Cholesterol 41 H HDL Cholesterol 31 L Cholesterol/HDL Ratio 6.9 H SARS-CoV-2 (PCR) Influenza A Untype (PCR) Influenza Type B (PCR) echo:Conclusion 1. Normal left ventricular size, preserved left ventricular systolic function, visually estimated ejection fraction 55% with no regional wall motion abnormality, diastolic parameters are within normal range. 2. Trace mitral and tricuspid regurgitation. 3. No significant pericardial effusion noted. Ordering Physician: Provider,Referral Date of Service: 10/24/20 Procedure(s): XR chest portable Accession Number(s): [id number] cc: Ant Neville MD; Provider,Referral ~ PROCEDURE: XR CHEST PORTABLE CLINICAL HISTORY: CHEST PAIN COMPARISON: No exams were available for comparison FINDINGS: The cardiomediastinal silhouette and pulmonary vascularity are within normal limits. The lungs are clear without infiltrates, suspicious nodules, or pleural effusions. Overlying artifact IMPRESSION: N0 acute findings. cardiology consult Assessment and plan all Dx Assessment and Plan for all problems:: Plan: 1. This is a 35-year-old gentleman who presented to the emergency department with chest pain and shortness of breath as well as palpitations. The patient has ruled out for an GA. His EKG is normal.
== END 2020-10-25 17:30 | disposition home or self-care (01) ==
LOC: UTC 14:09 → ER 14:22 → 2ND 17:12
PROVIDERS: Admitting Provider Family Medicine; Emergency Provider Emergency Medicine; Visit Provider Family Medicine
DX: R07.9 Chest pain, unspecified (principal); Z20.822 Contact with and (suspected) exposure to COVID-19; I10 Essential (primary) hypertension; E78.5 Hyperlipidemia, unspecified; R06.9 Unspecified abnormalities of breathing
CPT/HCPCS: 36415; 71045; 80048; 80061; 84484; 85025; 93005; 93017; 93306; 99283; G0378; U0003